=== PATIENT | female | born 1980 | race Caucasian/White ===

== ENCOUNTER 2018-04-01 23:22 | Emergency (ER) | payer OTHER ==
[~2018-04-01] VITALS: Ht 162.6 cm; Wt 74.4 kg
[2018-04-01 23:54] LABS: ABSOLUTE EOSINOPHILS 0.4 thou/uL (0.0-0.7); ABSOLUTE LYMPHOCYTES 2.2 thou/uL (0.8-5.3); ABSOLUTE MONOCYTES 0.7 thou/uL (0.0-1.2); ABSOLUTE NEUTROPHILS 6.4 thou/uL (1.6-8.1); BASOPHILS 0.5 %; EOSINOPHILS 3.6 %; HEMATOCRIT 35.1 % (37.0-47.0); HEMOGLOBIN 11.5 gm/dL (12.0-15.0); LYMPHOCYTES 22.8 %; MCH 26.9 pg (26.0-34.0); MCHC 32.7 g/dL (28.0-37.0); MCV 82.3 fL (80.0-100.0); MONOCYTES 6.9 %; NUCLEATED RBCS 0 /100WBC; PLATELET COUNT* 358 thou/uL (150-400); POLYS 66.2 %; RBC 4.27 mil/uL (4.20-5.00); RDW-CV 15.1 % (10.5-14.5); WBC 9.7 thou/uL (4.0-11.0)
[2018-04-01 23:57] LABS: CALCIUM 9.8 mg/dL (8.5-10.1); CREATININE 0.7 mg/dL (0.6-1.3); POTASSIUM 3.9 mmol/L (3.5-5.1)
[2018-04-02 00:36] LABS: URINE BILIRUBIN NEGATIVE (Negative); URINE BLOOD 3+ (Negative); URINE CLARITY SL CLOUDY; URINE GLUCOSE-RANDOM NEGATIVE (Negative); URINE KETONES NEGATIVE (Negative); URINE NITRITE-REFLEX NEGATIVE (Negative); URINE PROTEIN TRACE (Negative); URINE SPECIFIC GRAVITY 1.015 (1.005-1.030); URINE UROBILINOGEN 0.2 E.U./dl (0.2-1.0)
[2018-04-02 00:42] LABS: URINE COLOR PINK; URINE LEUKOCYTES-REFLEX 2+ (Negative)
[2018-04-02 01:17] LABS: CASTS None Seen /LPF (None Seen); URINE RBC >20 Many /HPF (0-2)
[2018-04-02 01:18] LABS: CRYSTALS None Seen /LPF (None Seen); SQUAMOUS 0-3 Few /LPF (0-3)
[2018-04-02] MEDS ORDERED: CEFDINIR300 MG PO (02:37)
[2018-04-02] MEDS ORDERED: HYDROCODON-ACE1 EAC8 PO (02:40)
[2018-04-02 02:55] VITALS: BP 119/77
== END 2018-04-02 02:56 | disposition home or self-care (01) ==
LOC: M.ERS 23:22
PROVIDERS: Emergency Medicine
DX: O86.20 Urinary tract infection following delivery, unspecified (principal)